=== PATIENT | male | born 1940 | race Two or more races ===

== ENCOUNTER 2020-01-21 21:56 | Inpatient (IN) | payer OTHER, MEDICAID ==
[~2020-01-21] VITALS: Ht 167.6 cm; Wt 63.0 kg
[2020-01-22 02:16] LABS: Basophils # (auto) 0 10 ^3/uL (0-0.2); Eosinophils # (auto) 0 10 ^3/uL (0-0.8); Lymphocytes # (auto) 1.7 10 ^3/uL (0.4-5.4)
[2020-01-22 02:31] LABS: INR 1.07 (0.9-1.15); Partial Thromboplastin Time 26.2 sec (23.64-32.05)
[2020-01-22 02:35] LABS: Alanine Aminotransferase 37 U/L (16-61); Albumin 3.9 g/dL (3.4-5.0); Anion Gap 5 (5-15); Aspartate Aminotransferase 14 U/L (15-37); BUN/Creatinine Ratio 13.7; Blood Urea Nitrogen 13 mg/dL (7-18); Carbon Dioxide 28 mmol/L (21-32); Chloride 104 mmol/L (98-107); GFR African American 98 mL/min; GFR Non-African American 81 mL/min; Glucose 121 mg/dL (74-106); Potassium 5.4 mmol/L (3.5-5.1); Sodium 137 mmol/L (136-145)
[2020-01-22 02:40] LABS: Alkaline Phosphatase 107 U/L (45-117); Bilirubin, Total 1.2 mg/dL (0.2-1.0); Total Protein 8.6 g/dL (6.4-8.2)
[2020-01-22 02:55] LABS: Basophils % (auto) 0.2 % (0.0-2.0); Hematocrit 48.6 % (41.0-53.0); Hemoglobin 16.4 g/dL (13.5-17.5); Lymphocytes % (auto) 16.8 % (10.0-50.0); Mean Corpuscular Hemoglobin 32.1 pg (28.0-32.0); Mean Corpuscular Hgb Conc. 33.7 g/dL (32.0-36.0); Mean Corpuscular Volume 95.2 fL (80.0-100.0); Monocytes # (auto) 0.6 10 ^3/uL (0-1.3); Monocytes % (auto) 5.8 % (0.0-12.0); Neutrophils # (auto) 7.6 10 ^3/uL (1.6-8.6); Neutrophils % (auto) 77.2 % (37.0-80.0); Nucleated Red Blood Cells % 0.2 %; Platelet Count (auto) 221 10^3/uL (140-450); Red Blood Cells 5.11 10^6/uL (4.5-5.90); Red Cell Distribution Width 13.6 % (11.8-14.3); White Blood Cell 9.9 10^3/uL (4.4-10.8)
[2020-01-22] MEDS ORDERED: MET25T PO (04:03)
[2020-01-22] MEDS ORDERED: ATOR40TA52 PO (04:03)
[2020-01-22] MEDS ORDERED: DONE10TA40 PO (04:03)
[2020-01-22] MEDS ORDERED: MEMA1TAB5 PO (04:03)
[2020-01-22] MEDS ORDERED: QUET100T46 PO (04:03)
[2020-01-22] MEDS ORDERED: CLOP75TA41 PO (04:05)
[2020-01-22] MEDS ORDERED: SODIUM CHLORIDE 0.9% 1,000 ML IV SCH (05:23)
[2020-01-22] MEDS ORDERED: MORPHINE SULF INJ 2 MG/ML SYRINGE 1ML IV PRN (05:30)
[2020-01-22] MEDS ORDERED: HYDROcodone-ACET 5/325MG TAB PO PRN (05:30)
[2020-01-22] MEDS ORDERED: DOCUSATE SOD 100 MG CAP PO PRN (05:30)
[2020-01-22] MEDS ORDERED: ACETAMINOPHEN 325 MG TAB PO PRN (05:30)
[2020-01-22] MEDS ORDERED: ONDANSETRON HCL 4 MG/2 ML VIAL IV PRN (05:30)
[2020-01-22 06:50] LABS: Basophils # (auto) 0.1 10 ^3/uL (0-0.2); Basophils % (auto) 0.7 % (0.0-2.0); Eosinophils # (auto) 0 10 ^3/uL (0-0.8); Eosinophils % (auto) 0.1 % (0.0-7.0); Hematocrit 42.8 % (41.0-53.0); Hemoglobin 14.5 g/dL (13.5-17.5); Lymphocytes # (auto) 1.4 10 ^3/uL (0.4-5.4); Lymphocytes % (auto) 16.7 % (10.0-50.0); Mean Corpuscular Hgb Conc. 33.9 g/dL (32.0-36.0); Mean Corpuscular Volume 94.6 fL (80.0-100.0); Monocytes # (auto) 0.7 10 ^3/uL (0-1.3); Monocytes % (auto) 7.9 % (0.0-12.0); Neutrophils # (auto) 6.5 10 ^3/uL (1.6-8.6); Neutrophils % (auto) 74.6 % (37.0-80.0); Nucleated Red Blood Cells % 0.1 %; Platelet Count (auto) 180 10^3/uL (140-450); Red Blood Cells 4.53 10^6/uL (4.5-5.90); Red Cell Distribution Width 13.4 % (11.8-14.3); White Blood Cell 8.7 10^3/uL (4.4-10.8)
[2020-01-22 07:11] LABS: Calcium 8.5 mg/dL (8.5-10.1); Potassium 4.3 mmol/L (3.5-5.1)
[2020-01-22 07:16] LABS: BUN/Creatinine Ratio 14.6
[2020-01-22] MEDS ORDERED: MEMANTINE HCL 5 MG TAB PO SCH (10:00)
[2020-01-22] MEDS: METOPROLOL TARTRATE 25 MG TAB PO SCH ×2 (10:00→11:55)
[2020-01-22] MEDS ORDERED: PATIENTS OWN MEDICATION (Memantine Hydrochloride (Memantine HCl) 1 TAB) PO SCH (10:00)
--- NOTE | 2020-01-22 10:50 | NUR ---
MS admit from [facility] admitted to tele/MS after SBAR received. Patient oriented to ARIADNA KOENIG RN primary RN, Tele unit, room 290, bed A, and unit policies regarding patient care and visiting hours. Patient weighed by bedscale and encouraged to call if they need something. Fall precautions in place, bed alarm on. Wilson hung below bladder free of kinks. All questions and concerns addressed, patient unable to verbalize understanding at this time with current disease process of advanced Dementia, will continue to monitor.
[2020-01-22 11:08] VITALS: BP 160/61
--- NOTE | 2020-01-22 11:29 | NUR ---
MD HOFFMAN ROUNDING: CALLED [facility] UPDATED ON PLAN OF CARE. PATIENT IS UNDER [facility] COVERAGE AND IS TO BE TRANSFERRED TO THE [facility]. BED AVAILABLE PER MD, EITHER [facility] OR MD TO CALL THIS RN WITH ROOM NUMBER FOR TRANSFER.
--- NOTE | 2020-01-22 13:39 | NUR ---
FAX SENT TO [facility]. FAX SENT TO [phone]
[2020-01-22 14:00] VITALS: BP 160/61
[2020-01-22] MEDS ORDERED: ENOXAPARIN SOD 40 MG/0.4 ML SYRINGE SC SCH (14:00)
--- NOTE | 2020-01-22 14:00 | NUR ---
REPORT GIVEN TO ALEXIS EDMOND AT [facility]. PATIENT GOING TO ROOM 265 BED A.
--- NOTE | 2020-01-22 15:28 | NUR ---
[facility] APPROVAL/AUTHORIZATION: #[id number] DEVELOPER ARCHITECT TIME SET FOR 1800 WITH [facility]. THIS RN SPOKE WITH EMI AT [phone]
[2020-01-22 17:00] VITALS: BP 144/54
--- NOTE | 2020-01-22 17:54 | NUR ---
CALL FROM [facility]: RUNNING LATE MAY BE AROUND 1900.
--- NOTE | 2020-01-22 19:03 | NUR ---
DISCHARGE: PATIENT GIVEN ALL EDUCATION MATERIALS, PATIENT FED DINNER BEFORE LEAVING, TOLERATED WELL. PATIENT DENIES ANY PAIN. PATIENT LEFT WITH [facility] AND IV INTACT WELL ALL BELONGINGS.
[2020-01-22] MEDS ORDERED: ATORVASTATIN 20 MG TAB PO SCH (22:00)
[2020-01-22] MEDS ORDERED: PATIENTS OWN MEDICATION (Atorvastatin Calcium 1 TAB) PO SCH (22:00)
[2020-01-22] MEDS ORDERED: QUEtiapine FUMARATE 100 MG TAB PO SCH (22:00)
[2020-01-22] MEDS ORDERED: PATIENTS OWN MEDICATION (Donepezil Hydrochloride (Donepezil Hcl) 1 TAB) PO SCH (22:00)
[2020-01-22] MEDS ORDERED: DONEPEZIL HYDROCHLORIDE 5 MG TAB PO SCH (22:00)
--- NOTE | 2020-01-24 10:59 | NUR ---
No call or page regarding SS consult because pt was transferred to [facility] instead of discharging to home.
== END 2020-01-22 19:04 | disposition short-term general hospital (02) | DRG 536 ==
LOC: ER 21:56 → EDBD 21:56 → OVERFLOW 21:57 → WEST WING 01-22 10:44
PROVIDERS: ADMIT Hospitalist; ATTEND Hospitalist
DX: S72.142A Displaced intertrochanteric fracture of left femur, initial encounter for closed fracture (principal); F03.90 Unspecified dementia, unspecified severity, without behavioral disturbance, psychotic disturbance, mood disturbance, and anxiety; I10 Essential (primary) hypertension; W01.0XXA Fall on same level from slipping, tripping and stumbling without subsequent striking against object, initial encounter; Y93.89 Activity, other specified; Y92.098 Other place in other non-institutional residence as the place of occurrence of the external cause; Y99.8 Other external cause status
CPT/HCPCS: 36415; 70450; 71045; 72125; 73502; 80048; 80053; 80061; 83036; 84484; 85025; 85610; 85730; G0378; J2405